=== PATIENT | female | born 1955 | race Caucasian/White ===

== ENCOUNTER 2020-01-28 00:08 | Outpatient (CLI) | payer OTHER, SELFPAY ==
[2020-01-28 18:10] LABS: SARS-CoV-2 RNA PCR Negative
== END 2020-01-28 00:09 | disposition home or self-care (01) ==
PROVIDERS: PCP Internal Medicine; Visit Provider Surgery Plastic and Reconstructive Surgery
DX: Z20.828 Contact with and (suspected) exposure to other viral communicable diseases (principal); Z01.812 Encounter for preprocedural laboratory examination
CPT/HCPCS: 87635; C9803; U0003

== ENCOUNTER 2020-01-28 08:09 | Outpatient (CLI) | payer OTHER, SELFPAY ==
--- NOTE | 2020-01-28 08:10 | ECG_ITS ---
Measurements Intervals [place] Rate: 65 P: 75 CA: 140 QRS: 30 QRSD: 101 T: 31 QT: 391 QTc: 407 Interpretive Statements SINUS RHYTHM DELAYED PRECORDIAL R/S TRANSITION BASELINE ARTIFACT- I, II, III, AVR, AVL BORDERLINE ECG Electronically Signed On 01-28-2020 8:29:14 CDT by Kg Raymundo D.O.
[2020-01-28 08:35] LABS: Hemoglobin 9.3 g/dL (12.0-15.0)
[2020-01-28 08:46] LABS: Blood Urea Nitrogen 19 mg/dL (7-17); Calcium 9.1 mg/dL (8.4-10.2); Carbon Dioxide 31 mmol/L (22-30); Chloride 102 mmol/L (98-107); Estimated Glomerular Filt Rate > 60; Glucose 99 mg/dL (65-105); Potassium 4.4 mmol/L (3.4-5.0); Sodium 136 mmol/L (137-145)
== END 2020-01-28 08:10 | disposition home or self-care (01) ==
PROVIDERS: Anesthesiology; PCP Internal Medicine; Visit Provider Surgery Plastic and Reconstructive Surgery
DX: L57.4 Cutis laxa senilis (principal); E11.9 Type 2 diabetes mellitus without complications; I47.1 Supraventricular tachycardia; R94.31 Abnormal electrocardiogram [ECG] [EKG]
CPT/HCPCS: 36415; 80048; 85014; 85018; 93005

== ENCOUNTER 2020-01-30 01:04 | Day surgery (SDC) | payer OTHER, SELFPAY ==
[2020-01-23 15:01] VITALS: BMI 21.6
--- NOTE | 2020-01-29 12:15 | P.PNAN_ITS ---
Anes - Initial Pre Proc Eval Procedure: Operation Date: 01/30/20 09:00 Proposed Procedures p Bilateral Upper Eyelid Blepharoplasty - Anil Coppola MD s Cervicoplasty - Anil Coppola MD s Full Face Fat Grafting - Anil Coppola MD Date/Time: 01/29/20 12:15 Surgeon: Anil Coppola MD Pre Op Diagnosis: Skin Laxity Patient Data Age: 64 Gender: F Height: 5 ft 6 in Weight: 60.78 kg Allergies Allergy/AdvReac Type Severity Reaction Status Date / Time No Known Allergies Allergy Unverified 01/30/20 07:49 Home Medications Medication Instructions Recorded Confirmed Type atorvastatin 20 mg tablet 20 mg PO DAILY 09/17/19 01/30/20 History clonazepam 1 mg tablet 1 mg PO HS 09/17/19 01/30/20 History levothyroxine 88 mcg tablet 88 mcg PO DAILY 09/17/19 01/30/20 History metoprolol succinate 50 mg capsule 50 mg PO DAILY 09/17/19 01/30/20 History sprinkle, ext. release 24 hr acetaminophen [Tylenol] 325 mg PO Q4-6H PRN 01/23/20 01/23/20 History metformin 500 mg PO HS 01/23/20 01/30/20 History metoprolol succinate 25 mg PO HS 01/23/20 01/30/20 History Patient hx anesthesia problems: none Family hx anesthesia problems: none [facility] Past Medical History Medical History (Updated 01/29/20 @ 12:15 by Jacek Lofton MD) Arrhythmia h/o reentry tachycardia Diabetes Hypothyroidism Family History Family History (Updated 09/17/19 @ 14:56 by Debbie Mace) Sibling Pancreatic cancer Social History Social History (Updated 09/17/19 @ 14:56 by Debbie Mace) Smoking status: Never smoker Alcohol intake: current Gender identity (if verbalized by the patient): Female Anes - Eval Final PreProcedure Day of Procedure 01/29/20 12:15 Patient weight: normal Heart: regular rate and rhythm Lungs: clear to auscultation Airway: Mallampati scale class III (anterior) Neurological: alert and oriented Last oral intake: >/= 8 hours ASA classification: III Emergent: no Anesthetic plan: proceed Anesthesia type and monitoring: general ETT and standard monitoring Informed Consent: The patient's anesthetic plan and its attendant risks and benefits were discussed with the patient/family/POA. Questions were solicited and answers provided to the satisfaction of the patient/family/POA.
[2020-01-30] VITALS (12 sets, daily range): BP systolic 94–116; BP diastolic 40–62; PULSE 62–76; RESP 10–18; TEMP 36.2–36.7; O2SAT 96–100
[2020-01-30 07:18] LABS: Urine Cotinine NEGATIVE
[2020-01-30 07:35] LABS: Glucose Point of Care 100 (65-105)
[2020-01-30] MEDS: LACTATED RINGERS 1,000 ML 30 ML IV CONT ×2 (07:35→15:01)
--- NOTE | 2020-01-30 09:06 | WPDHPUPDATE1 ---
History and Physical Update Update Date/Time: 01/30/20 09:06 History and Physical has been reviewed, including an updated exam of the patient. There are NO changes in the patient's condition. Risks, benefits, and alternatives have been discussed and questions answered. Patient agrees to proceed with procedure.
--- NOTE | 2020-01-30 09:13 | PM.PROC ---
Procedure Note - Detailed Date of procedure: 01/30/20 Pre-op diagnosis: Skin Laxity Encounter for cosmetic surgery Post-op diagnosis: same Procedure performed: 1. Cervicoplasty 2. Facial fat grafting 3. Bilateral upper eyelid blepharoplasty Description of procedure: Risks, benefits, alternatives were discussed in extensive detail with her in the preoperative holding area. I was very up front honest about the risks involved as well as expectations. She understands this is a revision procedure which increases her risks for complications which were outlined in detail. She understands this could lead to dry eyes or even visual loss. She understands the risk of fat grafting including arterial emboli and risks skin loss and blindness. She understands we are not addressing the face and this was outlined that this will not correct jowling. she understands there will be some recurrence of laxity and we were very up front honest about this. Answered all of her questions to her satisfaction today and consent obtained. Patient was marked in the preoperative holding area with her verification. For her upper lids I did do a pinch test and had her close her eyes to make sure with resection there would be no lagophthalmos. We did [place] out her goals. Taken to the operating room placed supine on the operating table. Anesthesia provided by anesthesiology and prepped and draped in a standard sterile fashion. Surgical time-out was taken. On the abdomen I did tumescent solution as well as infiltration of the face in subcutaneous plane using the tumescent solution. 18 gauge used to make a stab incision in the abdomen. He has a 3 mm multi hole cannula with small port size to complete suction lipectomy just a minimal amount with was placed in a gravity separation device. We proceeded with the upper eyelid blepharoplasty. Fifteen blade used to excise the skin. I removed any excess adiposity of which there was minimal. I then closed using 5 0 Prolene. After separation of the adipose tissue I removed the inferior and superior part just taking the central adipose tissue. This was placed in 1 cc syringes. I used a combination of 0.9, 1.2 mm cannulas for injection as well as blunt tip and the dissected cannulas in order to get the infiltration of the cheeks face and temples. This was a total volume of 20cc. Fifteen blade used to make a submental incision and I elevated leaving well-vascularized thickness today skin flaps. An size between the platysma and elevated platysmal flaps. I then elevated the neck flaps and along the jaw line in order to provide a good contour. Is all superficial to this SMAS / Platysma. A copious irrigated with saline solution and verified strict hemostasis. I allowed her blood pressure did elevate slightly in order to verify no bleeding. I released the platysma along its lower border near the hyoid bone in order to get good contour. I did a [id number] type repair of the platysma using 3-0 PDS. Just prior to this I had placed a 10 Jose G drain bilaterally with the left 1 going deep to the platysma muscle through a small separation of the platysma muscle. Laterally inferior and posterior to the mandibular angle I created a platysmal window. This was elevated and sutured with 3-0 PDS to the mastoid fascia. I closed with combination of 5 0 nylon and 5 0 chromic. Xeroform, fluffs, and face-lift tape was placed. Tolerated the procedure well. Anesthesia: GETA Surgeon: Anil Coppola MD Estimated blood loss (mL): 30 Drains: Yes (Bilateral 10 jose g) Packing: No Pathology: none sent Complications: No immediate complications Condition: stable Disposition: PACU
[2020-01-30] MEDS: LIDO 1%/EPINEPHRINE 1:100,000 20 ML VIAL 10 ML INFILTRATE (09:29)
[2020-01-30] MEDS: BACITRACIN OINTMENT 15 GM TUBE 1 APPLIC TOPICAL (09:29)
[2020-01-30] MEDS: BACITRACIN OP OINT 3.5 GM TUBE 1 APPLIC EACH EYE (09:29)
[2020-01-30] MEDS: ceFAZolin 2 GM/D5W 50 ML 2 GM/50 ML BAG IVPB (09:29)
[2020-01-30] MEDS: IBUPROFEN IV 800 MG/200 ML 800 MG/200 ML BAG 400 MG IVPB (09:50)
--- NOTE | 2020-01-30 14:21 | SUR.OPER ---
EBL:20cc
--- NOTE | 2020-01-30 14:53 | SUR.OPER ---
urine:900cc
--- NOTE | 2020-01-30 15:40 | SUR.PHASEI ---
[id number] spoke with daughter(travis) gave her update on mom, and room#
[2020-01-30 15:46] LABS: Glucose Point of Care 138 (65-105)
--- NOTE | 2020-01-30 16:01 | SUR.PHASEI ---
9721 SBAR FAXED FLOOR NOTIFIED
--- NOTE | 2020-01-30 16:39 | ADMGEN ---
This patient, Sania Bates, was admitted to [facility] Room 302-01. Patient/family oriented to hospital policies and general routines including ID bracelet, bed and alarms, visiting hours, pain management, procedures, bathroom and other care routines, personal items, smoking policy, room service/diet, and visiting hours. Valuables list has been completed. Information on how to activate the Rapid Response Team has been discussed. Patient/Family are encouraged to report perceived risks to care and to ask questions if they do not understand what they are told or what they should do.
[2020-01-30] MEDS: LACTATED RINGERS 1,000 ML 125 ML IV CONT (16:48)
[2020-01-30] MEDS: carisoprodoL 350 MG TABLET PO ×2 (18:26→23:54)
[2020-01-30] MEDS: DOCUSATE SODIUM 100 MG CAPSULE PO (21:28)
[2020-01-30] MEDS: MORPHINE SULFATE 2 MG/ML INJ IV PUSH (21:28)
[2020-01-30] MEDS: metFORMIN HCL 500 MG TABLET PO (21:28)
[2020-01-30] MEDS: METOPROLOL SUCCINATE EXT REL 25 MG TABCR PO (21:29)
[2020-01-31 02:00] VITALS: BP 88/50; PULSE 73; RESP 16; TEMP 36.6; O2SAT 95
[2020-01-31] MEDS: LEVOTHYROXINE SODIUM 88 MCG TABLET PO (05:39)
[2020-01-31] MEDS: carisoprodoL 350 MG TABLET PO (05:39)
[2020-01-31 05:50] VITALS: BP 98/56; PULSE 77; RESP 16; TEMP 36.8; O2SAT 99
--- NOTE | 2020-01-31 07:17 | WPDPN ---
Progress Note: A&P Assessment and Plan (1) Encounter for cosmetic surgery: Code(s): Z41.1 - Encounter for cosmetic surgery Status: Acute Assessment and Plan: She is doing very well after facial fat grafting, cervicoplasty, bilateral upper eyelid blepharoplasty. Continue drains. Discharge home. Follow up in 1 week. Today we had a lengthy discussion about the care. Discussed what monitor for. She is able to approximate her lids however this is not tight with the degree of edema around the lids. She is having no visual symptoms however I did describe what to do if she does develop visual symptoms or concerns. She understands she can call at any time with any questions or concerns. This was a lengthy open-ended conversation making sure she was well informed what monitor for. The care. She understands she will call with any questions or concerns. She understands shortness of breath, chest pain, or other medical emergency she should dial 911 / proceed to the emergency room. I will see her back. 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 PERRLA EOMI. She is able to approximate her eyes with no lagophthalmos however not tightly. She is having no visual concerns. No signs of infection. No hematoma. No seroma. Drains are becoming serosanguineous. No calf tenderness. Negative Homans. Abdomen is healing well. Objective Data Vital Signs Vital Signs: Vital Signs - 24 hr 01/30/20 15:05 01/30/20 15:20 01/30/20 15:35 Temperature 36.5 C Pulse Rate 68 62 67 Respiratory Rate 14 10 L 12 Blood Pressure 98/52 L 94/48 L 101/48 L Pulse Oximetry 100 100 97 01/30/20 15:50 01/30/20 16:04 01/30/20 16:20 Temperature 36.6 C Pulse Rate 65 65 70 Respiratory Rate 12 12 14 Blood Pressure 101/49 L 94/47 L 98/40 L Pulse Oximetry 96 96 98 01/30/20 16:35 01/30/20 17:05 01/30/20 18:06 Temperature 36.6 C 36.6 C 36.7 C Pulse Rate 66 76 72 Respiratory Rate 14 16 16 Blood Pressure 97/41 L 107/45 L 102/49 L Pulse Oximetry 96 100 98 01/30/20 21:29 01/30/20 22:00 01/31/20 02:00 Temperature 36.7 C 36.6 C Pulse Rate 73 73 73 Respiratory Rate 16 16 Blood Pressure 100/46 L 88/50 L Pulse Oximetry 100 95 01/31/20 05:50 Temperature 36.8 C Pulse Rate 77 Respiratory Rate 16 Blood Pressure 98/56 L Pulse Oximetry 99 Intake/Output Intake/Output: Intake & Output 01/28/20 01/29/20 01/30/20 01/31/20 23:59 23:59 23:59 23:59 Intake Total 240 1160 Output Total 80 1428 Balance 160 -268 Meds/Results Medications: Active Medications Generic Name Dose Route Start Last Admin Trade Name Stanleyq PRN Reason Stop Dose Admin Atorvastatin Calcium 20 mg 01/31/20 09:00 Lipitor PO DAILY [facility] Carisoprodol 350 mg 01/30/20 18:00 01/31/20 05:39 Soma PO 350 mg Q6HR KASHIF Administration Docusate Sodium 100 mg 01/30/20 21:00 01/30/20 21:28 Colace Capsule PO 100 mg Q12HR KASHIF Administration Enoxaparin Sodium 40 mg 01/31/20 09:00 Lovenox SUB-Q DAILY KASHIF Levothyroxine Sodium 88 mcg 01/31/20 06:30 01/31/20 05:39 Synthroid PO 88 mcg DAILY@0630 KASHIF Administration Metformin HCl 500 mg 01/30/20 21:00 01/30/20 21:28 Glucophage PO 500 mg HS KASHIF Administrat
--- NOTE | 2020-01-31 07:23 | PM.DS ---
DS: Admitting Diagnosis Admitting Diagnosis Admitting Diagnosis: Encounter for cosmetic surgery DS: Discharge Diagnosis Discharge Diagnosis (1) Encounter for cosmetic surgery: Code(s): Z41.1 - Encounter for cosmetic surgery Status: Acute Assessment and Plan: Doing well after facial fat grafting, cervicoplasty, and bilateral upper eyelid blepharoplasty. Will discharge home. Follow up in 1 week. Today we had a lengthy open-ended conversation discussing the care after discharge. Made sure answered all of her questions to her satisfaction. She understands I am available at any time with questions or concerns. 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 PERRLA EOMI. She is able to approximate her eyes with no lagophthalmos however not tightly. She is having no visual concerns. No signs of infection. No hematoma. No seroma. Drains are becoming serosanguineous. No calf tenderness. Negative Homans. Abdomen is healing well. Const: General: comfortable, no acute distress, alert and awake; No acute distress Orientation/consciousness: oriented to person HENMT: Head: normal to inspection Ears: external ears normal General nose exam: Normal external nose present Face and sinus: normal facial exam Eyes: General: appearance normal, both eyes and all related structures Periorbital: periorbital findings normal Eyelids: eyelids normal Conjunctivae: conjunctivae normal Neck: Neck: normal visual inspection Chest: Chest palpation & inspection: normal inspection of the chest Resp: Effort & Inspection: normal respiratory effort and able to speak in complete sentences GI: Inspection: normal to inspection Neuro: General: oriented to person Psych: Appearance: grossly normal Mental Status: mental status grossly normal DS: Data Data Completed and Pending Labs on day of discharge: Labs from last 24 hours 01/30/20 01/30/20 15:43 07:32 POC Capillary Glucose 138 H 100 Discharge Plan Discharge Patient Disposition: Home, Self-Care Discharge Instructions: POST OPERATIVE DISCHARGE INSTRUCTIONS FOR Upper eyelid blepharoplasty, Cervicoplasty, facial fat graftin. SARANYA FLOWER M.D. [facility] [address] [place] [address] [address] for 24 hours after anesthesia and while you are taking pain medication. Take all prescribed medication as directed Diet as tolerated. No lifting or activity that raises blood pressure for 48 hours. Regular walking / ambulation. No showering until directed to. Once you shower do not take pain medication before showering as the combination of medication and heat may cause you to feel dizzy or pass out. No pools or tubs for 2 weeks. Call with any questions or concerns. Dressing Care: Continue face-lift wrap 23 hours a day. Continue abdominal binder 23 hours per day. Continue drains and monitor output (nursing will teach how to care). May shower however kid drain sites clean. If you have any questions or concerns, please call the office . If it is after hours you will be directed to the surgical consultant exchange. Shortness of breath, chest pain, or other medical emergency dial 911 / proceed to the Emergency Room. Follow-up/Referrals: [place]
[2020-01-31 08:11] VITALS: PULSE 66
[2020-01-31] MEDS: METOPROLOL SUCCINATE EXT REL 50 MG TABCR PO (08:11)
[2020-01-31] MEDS: DOCUSATE SODIUM 100 MG CAPSULE PO (08:12)
[2020-01-31] MEDS: ATORVASTATIN 20 MG TABLET PO (08:12)
[2020-01-31] MEDS: ENOXAPARIN 40 MG/0.4 ML SYRINGE SUB-Q (08:13)
== END 2020-01-31 11:00 | disposition home or self-care (01) ==
LOC: ANHSURGERY 06:51 → ANH3MEDSUR 16:34
PROVIDERS: PCP Internal Medicine; Visit Provider Surgery Plastic and Reconstructive Surgery
PROC: (CPT 15819; principal; 2020-01-30 09:00)
PROC: (CPT 15819; 2020-01-30 09:00)
PROC: (CPT 15769; 2020-01-30 09:00)
DX: Z41.1 Encounter for cosmetic surgery (principal); L57.4 Cutis laxa senilis; E11.9 Type 2 diabetes mellitus without complications; E03.9 Hypothyroidism, unspecified; E78.00 Pure hypercholesterolemia, unspecified; I47.1 Supraventricular tachycardia; Z79.84 Long term (current) use of oral hypoglycemic drugs
CPT/HCPCS: 15819; 15773; 15822; 36415; 80307; A9270; J0171; J0330; J0690; J1100; J1650; J1741; J2250; J2270; J2405; J2704; J3010; J7120